=== PATIENT | male | born 1985 | race Caucasian/White ===

== ENCOUNTER 2018-07-24 18:30 | Emergency (ER) | payer SELFPAY ==
[~2018-07-24] VITALS: Ht 185.4 cm; Wt 138.3 kg
[2018-07-24 18:30] VITALS: BP 147/91
[2018-07-24] MEDS: predniSONE 10 MG TABLET PO ONE (19:26)
[2018-07-24] MEDS: CYCLOBENZAPRINE 10 MG TABLET. PO ONE (19:26)
[2018-07-24 19:41] LABS: BILIRUBIN,URINE NEG (NEG); CLARITY,URINE CLEAR; COLOR,URINE YELLOW; GLUCOSE,URINE NEG (NEG)
[2018-07-24 19:42] LABS: BACTERIA,URINE 0 /HPF (0-FEW); NITRITE,URINE NEG (NEG); RBC,URINE 0 /HPF (0-2); UROBILINOGEN,URINE 0.2 mg/dL (0.2 mg/dL); WBC,URINE 0 /HPF (0-4)
[2018-07-24] MEDS ORDERED: METH4TAB2 PO (20:12)
[2018-07-24] MEDS ORDERED: CYCL-331 PO (20:12)
--- NOTE | 2018-07-24 20:12 | PHYS DOC ---
Adult General Chief Complaint Chief Complaint: FLANK PAIN HPI HPI Patient is a 33 year old male who presents with complaint of low back pain. Patient states he has history of chronic back pain but states over the past 2 weeks he has had worsening symptoms. The patient states that his pain originates in his low back. Patient states that he has had radiation of pain towards the left side of his groin. Denies any loss of bowel or bladder control , saddle anesthesia, or foot drop. Patient has been taking ibuprofen and Tylenol at home with minimal relief in symptoms. Patient has also been trying stretching. Symptoms usually worse in the morning time. Denies any increase in work or activity. Review of Systems Review of Systems Constitutional: Denies fever or chills [] Eyes: Denies change in visual acuity, redness, or eye pain [] HENT: Denies nasal congestion or sore throat [] Respiratory: Denies cough or shortness of breath [] Cardiovascular: Denies chest pain or edema[] GI: Denies abdominal pain, nausea, vomiting, bloody stools or diarrhea [] : Denies dysuria or hematuria [] Musculoskeletal: Back pain[] Integument: Denies rash or skin lesions [] Neurologic: Denies headache, focal weakness or sensory changes [] All other systems were reviewed and found to be within normal limits, except as documented in this note. Current Medications Current Medications Current Medications Medications (Trade) Dose Ordered Sig/Carlos Start Time Stop Time Status Last Admin Dose Admin Cyclobenzaprine HCl (Flexeril) 10 mg 1X ONCE 07/24/18 19:15 07/24/18 19:22 DC 07/24/18 19:26 10 MG Prednisone (Prednisone) 50 mg 1X ONCE 07/24/18 19:15 07/24/18 19:22 DC 07/24/18 19:26 50 MG Allergies Allergies Allergies Coded Allergies Type Severity Reaction Last Updated Verified Penicillins Allergy Unknown 07/24/18 Yes Physical Exam Physical Exam Constitutional: Alert, afebrile, appears in moderate discomfort. [] HENT: Normocephalic, atraumatic, bilateral external ears normal, oropharynx moist, no oral exudates, nose normal. [] Eyes: PERRLA, EOMI, conjunctiva normal, no discharge. [] Neck: Normal range of motion, no tenderness, supple, no stridor. [] Cardiovascular:Heart rate regular rhythm, no murmur [] Lungs & Thorax: Bilateral breath sounds clear to auscultation [] Abdomen: Bowel sounds normal, soft, no tenderness, no masses, no pulsatile masses. [] Skin: Warm, dry, no erythema, no rash. [] Back: No midline tenderness, bilateral paraspinous muscle tenderness to palpation in the mid to lower lumbar spine, no flank ecchymosis, no CVA tenderness. [] Extremities: No tenderness, no cyanosis, no clubbing, ROM intact, no edema. [] Neurologic: Alert and oriented X 3, normal motor function, normal sensory function, no focal deficits noted. [] Current Patient Data Vital Signs Vital Signs Date Time Temp Pulse Resp B/P (MAP) Pulse Ox O2 Delivery O2 Flow Rate FiO2 07/24/18 18:30 97.7 72 20 147/91 (109) 99 Room Air Lab Results Laboratory Tests Test 07/24/18 19:15 Urine Collection Type Unknown Urine Color Yellow Urine Clarity Clear Urine pH 6.0 Urine Specific [place] 1.025 Urine Protein Neg (NEG-TRACE) Urine Glucose (UA) Neg mg/dL (NEG) Urine Ketones (Stick) Neg mg/dL (NEG) Urine Blood Neg (NEG) Urine Nitrite Neg (NEG) Urine Bilirubin Neg (NEG) Urine Urobilinogen Dipstick 0.2 mg/dL (0.2 mg/dL) Urine Leukocyte Esterase Neg (NEG) Urine RBC 0 /HPF (0-2) Urine WBC 0 /HPF (0-4) Urine Squamous Epithelial Cells None /LPF Urine Bacteria 0 /HPF (0-FEW) EKG EKG Not performed[] Radiology/Procedures Radiology/Procedures Not performed[] Course & Med Decision Making Course & Med Decision Making Pertinent Labs and Imaging studies reviewed. (See chart for details) Patient was given Flexeril and prednisone in the emergency department for treatment. Urinalysis negative for hematuria. Patient symptoms are consistent with acute on chronic back pain. Patient prescribed Flexeril and Medrol Dosepak for continued outpatient therapy. Advised follow-up with primary doctor in the next 5-7 days for reevaluation and return to the emergency department for any worsening symptoms per the patient was understanding and in agreement with treatment plan. Dragon Disclaimer Dragon Disclaimer This electronic medical record was generated, in whole or in part, using a voice recognition dictation system. Departure Departure: Impression: Primary Impression: Acute exacerbation of chronic low back pain Disposition: HOME, SELF-CARE Condition: IMPROVED Referrals: JANINE CISNEROS (PCP) Patient Instructions: Back Pain, Adult Additional Instructions: Follow-up the primary doctor in the next 5 days for reevaluation. Return to the emergency department for any worsening symptoms. Scripts Methylprednisolone (MEDROL) 4 Mg Tab.ds.pk 1 PKG PO UD, #1 PKG Prov: DARNELL WHITLEY MD 07/24/18 Cyclobenzaprine Hcl (CYCLOBENZAPRINE HCL) 10 Mg Tablet 1 TAB PO TID PRN for MUSCLE PAIN, #30 TAB Prov: DARNELL WHITLEY MD 07/24/18 DARNELL WHITLEY MD Jul 24, 2018 20:12
== END 2018-07-24 20:20 | disposition home or self-care (01) ==
LOC: ER 18:30
DX: G89.29 Other chronic pain (principal); M54.5 Low back pain; Z88.0 Allergy status to penicillin
CPT/HCPCS: 81001; 99283; J7512

== ENCOUNTER 2020-03-29 15:32 | Emergency (ER) | payer BC ==
[~2020-03-29] VITALS: Ht 185.4 cm; Wt 133.6 kg
[~2020-03-29 15:32] MED LIST: CYCL-331 PO; METH4TAB2 PO
[2020-03-29] MEDS ORDERED: NEOMY/BACITR/POLYMYXIN OINT PACKET. TP ONE (15:45)
[2020-03-29] MEDS ORDERED: LIDOCAINE 1% PF 30 ML VIAL. INJ ONE (15:45)
--- NOTE | 2020-03-29 15:49 | PHYS DOC ---
General Adult EDM: Chief Complaint: HAND PROBLEM HPI: HPI: 35 yo M PMH anxiety/depression, presents to the ED immediately after he accidentally nailed his left second digit to a wooden board with a nail gun, just prior to arrival. Pt is right-hand dominant. Last tetanus 1 year above. NKDA. Not udner the influence of any alcohol or drugs. Review of Systems: Review of Systems: Constitutional: Denies fever or chills Eyes: Denies change in visual acuity HENT: Denies nasal congestion or sore throat Respiratory: Denies cough or shortness of breath Cardiovascular: Denies chest pain or edema GI: Denies abdominal pain, nausea, vomiting, or diarrhea Musculoskeletal: Denies back pain Integument: Denies rash Neurologic: Denies headache, or neck stiffness Psychiatric: Denies depression or anxiety Heart Score: Risk Factors: Risk Factors: DM, Current or recent (<one month) smoker, HTN, HLP, family history of CAD, obesity. Risk Scores: Score 0 - 3: 2.5% MACE over next 6 weeks - Discharge Home Score 4 - 6: 20.3% MACE over next 6 weeks - Admit for Clinical Observation Score 7 - 10: 72.7% MACE over next 6 weeks - Early Invasive Strategies Allergies: Allergies: Allergies Coded Allergies Type Severity Reaction Last Updated Verified Penicillins Allergy Unknown 07/24/18 Yes Physical Exam: PE: Constitutional: Well developed, well nourished, no acute distress, non-toxic appearance. [] HENT: Normocephalic, atraumatic, Eyes: EOMI, conjunctiva normal, no discharge. [] Neck: Normal range of motion, supple, Cardiovascular:Heart rate regular rhythm, no murmur [] Lungs & Thorax: Bilateral breath sounds clear to auscultation [] Abdomen: soft, no tenderness, Skin: Warm, dry, no erythema, no rash. [] Back: No tenderness, no CVA tenderness. [] Extremities: nail goes through ventral aspect of pts' left MCP joint, can bend at wrist and PIP/DIP joints, no cyanosis, no clubbing, ROM intact, no edema. [] Neurologic: Alert and oriented X 3, normal motor function, normal sensory function, no focal deficits noted. [] Psychologic: Affect normal, judgement normal, mood normal. [] EKG: EKG: [] Radiology/Procedures: Radiology/Procedures: IMAGING REPORT Signed PATIENT: SREE AWAD ACCOUNT: [id number] : 1985 LOCATION: ER AGE: 35 SEX: M EXAM STATUS: REG ER ORD. PHYSICIAN: ROZINA KAISER DO REASON: nailed a board to his hand PROCEDURE: HAND LEFT 3V Three-view study left hand Clinical indications: Nailed board to his hand. FINDINGS: A metallic nail is seen extending through the proximal epiphysis of the second proximal phalanx but does not extend through the articular surface. No fracture is evident. No dislocation or lytic process evident. IMPRESSION: Metallic nail is seen extending into the proximal epiphysis of the second proximal phalanx. Electronically signed by: Annabelle Frias MD (03/29/2020 4:11 PM) [id number] DICTATED AND SIGNED BY: ANNABELLE FRIAS MD DATE: 03/29/20 1611 CC: BOZA MOORE MD; ROZINA KAISER DO ~ Indication: Piece of wood mailed to patient's left nondominant finger Procedure: The area of the foreign body was prepped with chlorhexidine. Local anesthesia over the foreign body site was 1% lidocaine. The foreign body was then easily removed with traction and countertraction. After the procedure sterile dressings were placed. The patient's tetanus status up-to-date. The patient tolerated the procedure none. Complications: None, no blood loss Course & Med Decision Making: Course & Med Decision Making Pertinent Labs and Imaging studies reviewed. (See chart for details) Concern for accidental foreign body to left second digit, easily removed with no bleeding. Wound care instructions were given and dressings were placed. Patient able to move all of his joints including his MCP, PIP and DIP joint of the second digit -xray does not appear to show any joint involvement. Strict ED return precautions given for infection, rash, swelling or fever. Encouraged urgent outpatient follow-up with PMD and hand surgery. Life-threatening processes were considered but are low suspicion at this time, given history and physical exam. Pt was educated on all prescription medications and adverse effects. All patient's questions were answered and pt was stable at time of discharge. Differential includes fracture, dislocation, laceration, osteomyelitis, compartment syndrome, neurovascular injury or deficit, infection (abscess, cellulitis, septic arthritis), tendon or ligament injury. I spoken with the patient and her caregivers. I explained the patient's condition, diagnoses and treatment plan based on the information available to me at this time. I have answered the patient and her caregiver's questions and addressed any concerns. The patient and her caregivers have a good underst anding of patient's diagnosis, condition and treatment plan as can be expected at this point. Vital signs have been stable. Patient's condition is stable and appropriate for discharge from the emergency department. Patient will pursue further outpatient evaluation with primary care physician or other designated or consulting physician as outlined in the discharge instructions. The patient and/or caregivers are agreeable to this plan of care and follow-up instructions have been explained in detail. The patient and/or caregivers have received these instructions in written form and have expressed an understanding of the discharge instructions. The patient and/or caregivers are aware that any significant change of condition or worsening of symptoms should prompt immediate return to this or the closest emergency department or call to 911. Karrie Disclaimer: Karrie Disclaimer: This electronic medical record was generated, in whole or in part, using a voice recognition dictation system. Departure Departure: Impression: Primary Impression: Foreign body finger Additional Impressions: Finger wound, simple, open Open wound of finger of left hand Disposition: 01 HOME/RESIDENCE PRIOR TO ADM Condition: STABLE Referrals: BOAZ MOORE MD (PCP) Patient Instructions: Bone and Joint Infections, Child, Hand Injuries, Wound Care, [id number] Additional Instructions: Appointments may be made with Timmy Rucker MD, Vinnie Alegria MD, Darryn Singer MD or Mei Michaud MD, by calling [phone] -PLEASE SEE IN 1 WEEK IF MOBILITY OF FINGER WORSENS DUE TO RISK OF TENDON INJURY Scripts Cephalexin (KEFLEX) 500 Mg Capsule 2 CAP PO BID for cellulitis for 10 Days, #40 CAP 0 Refills Prov: ROZINA KAISER DO 03/29/20 Justification of Admission: Justification of Admission: Justification of Admission Dx: N/A ROZINA KAISER DO Mar 29, 2020 15:49
--- NOTE | 2020-03-29 16:14 | RAD ---
Three-view study left hand Clinical indications: Nailed board to his hand. FINDINGS: A metallic nail is seen extending through the proximal epiphysis of the second proximal phalanx but does not extend through the articular surface. No fracture is evident. No dislocation or lytic process evident. IMPRESSION: Metallic nail is seen extending into the proximal epiphysis of the second proximal phalanx. Electronically signed by: Baldomero Frias MD (03/29/2020 4:11 PM) [id number]
[2020-03-29 16:25] VITALS: BP 158/91
[2020-03-29] MEDS ORDERED: CEPH-264 PO (16:37)
== END 2020-03-29 16:40 | disposition home or self-care (01) ==
LOC: ER 15:32
DX: S61.201A Unspecified open wound of left index finger without damage to nail, initial encounter (principal); S60.451A Superficial foreign body of left index finger, initial encounter; Z88.0 Allergy status to penicillin; W29.4XXA Contact with nail gun, initial encounter; Y93.89 Activity, other specified; Y92.89 Other specified places as the place of occurrence of the external cause; Y99.8 Other external cause status
CPT/HCPCS: 73130; 99284; J2001; 99283

== ENCOUNTER 2020-08-06 08:29 | Emergency (ER) | payer OTHER ==
[~2020-08-06] VITALS: Ht 188 cm; Wt 136.0 kg
[~2020-08-06 08:29] MED LIST changes: +CEPH-264 PO
[2020-08-06 08:35] VITALS: BP 161/50
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
== END 2020-08-06 10:00 | disposition home or self-care (01) ==
LOC: ER 08:29
DX: S93.401A Sprain of unspecified ligament of right ankle, initial encounter (principal); I10 Essential (primary) hypertension; Z88.0 Allergy status to penicillin; V09.9XXA Pedestrian injured in unspecified transport accident, initial encounter; Y93.89 Activity, other specified; Y92.89 Other specified places as the place of occurrence of the external cause; Y99.8 Other external cause status
CPT/HCPCS: 73610; 99283